=== PATIENT | female | born 1995 | race Caucasian/White ===

== ENCOUNTER 2019-04-21 14:00 | Emergency (ER) | payer MEDICAID ==
[~2019-04-21] VITALS: Ht 149.9 cm; Wt 59.1 kg
[~2019-04-21 14:00] MED LIST: BISA-155 PO
[2019-04-21 14:22] VITALS: BP 151/90
[2019-04-21] MEDS ORDERED: METH4TAB81 PO (15:15)
[2019-04-21] MEDS ORDERED: triamcinolone acetonide 40mg/ml inj IM ONE (15:15)
== END 2019-04-21 15:30 | disposition home or self-care (01) ==
LOC: ER 14:01
DX: L23.7 Allergic contact dermatitis due to plants, except food (principal); R06.02 Shortness of breath; J45.909 Unspecified asthma, uncomplicated; F17.200 Nicotine dependence, unspecified, uncomplicated; Z88.0 Allergy status to penicillin; Z88.8 Allergy status to other drugs, medicaments and biological substances; Z79.899 Other long term (current) drug therapy
CPT/HCPCS: 96372; 99283; J3301

== ENCOUNTER 2019-07-29 12:07 | Emergency (ER) | payer MEDICAID ==
[~2019-07-29] VITALS: Ht 149.9 cm; Wt 59.1 kg
[~2019-07-29 12:07] MED LIST changes: +METH4TAB81 PO
[2019-07-29 12:37] LABS: BASOPHILS % (AUTO) 0.3 % (0-1); EOSINOPHILS # (AUTO) 0.1 X10'3 (0-0.9); EOSINOPHILS % (AUTO) 1.2 % (0-6); HEMATOCRIT 40.4 % (35.0-45.0); HEMOGLOBIN 13.7 g/dl (12.0-16.0); LYMPHOCYTES # (AUTO) 1.9 X10'3 (1.1-4.8); LYMPHOCYTES % (AUTO) 20.4 % (21-51); MEAN CORPUSCULAR HEMOGLOBIN 28.9 PG (27.0-31.0); MEAN CORPUSCULAR HGB CONC 33.8 g/dL (33.0-36.5); MEAN CORPUSCULAR VOLUME 85.5 FL (78-98); MEAN PLATELET VOLUME 7.5 FL (7.4-10.4); MONOCYTES # (AUTO) 0.6 X10'3 (0-0.9); MONOCYTES % (AUTO) 6.8 % (2-12); NEUTROPHILS # (AUTO) 6.7 X10'3 (1.8-7.7); NEUTROPHILS % (AUTO) 71.3 % (42-75); PLATELET COUNT 286 X10'3 (140-440); RED BLOOD COUNT 4.73 X10'6 (4.20-5.60); RED CELL DISTRIBUTION WIDTH 14.9 % (11.5-14.5); WHITE BLOOD COUNT 9.4 X10'3 (4.5-11.0)
[2019-07-29 12:51] LABS: PARTIAL THROMBOPLASTIN TIME 28 SECONDS (22-32)
[2019-07-29 12:54] LABS: ALANINE AMINOTRANSFERASE 17 U/L (12-78); ALBUMIN 4.2 G/DL (3.4-5.0); ALBUMIN/GLOBULIN RATIO 1.3 (1.1-1.5); ALKALINE PHOSPHATASE 60 IU/L (46-116); ANION GAP 9 (8-16); ASPARTATE AMINO TRANSFERASE 21 U/L (10-37); BILIRUBIN,TOTAL 0.4 MG/DL (0.1-1.0); BLOOD UREA NITROGEN 10 MG/DL (7-18); BUN/CREATININE RATIO 12.8 (6.6-38.0); CALCIUM 8.6 MG/DL (8.5-10.1); CHLORIDE 107 MMOL/L (99-107); CREATININE 0.78 MG/DL (0.40-0.90); GLUCOSE 75 MG/DL (70-104); POTASSIUM 3.5 MMOL/L (3.5-5.1); SODIUM 142 MMOL/L (135-145); TOTAL CARBON DIOXIDE 25.9 MMOL/L (24-32); TOTAL PROTEIN 7.4 G/DL (6.4-8.2); eGFR > 90 ML/MIN
[2019-07-29] MEDS ORDERED: ibuprofen tablet 400 MG TABLET PO ONE (13:05)
[2019-07-29] MEDS ORDERED: IBUP-1984 PO (13:24)
[2019-07-29 13:32] VITALS: BP 136/76
== END 2019-07-29 13:33 | disposition home or self-care (01) ==
LOC: ER 12:07
DX: S13.8XXA Sprain of joints and ligaments of other parts of neck, initial encounter (principal); R07.89 Other chest pain; J45.909 Unspecified asthma, uncomplicated; F17.200 Nicotine dependence, unspecified, uncomplicated; F10.99 Alcohol use, unspecified with unspecified alcohol-induced disorder; Z98.890 Other specified postprocedural states; Z88.0 Allergy status to penicillin; Z88.8 Allergy status to other drugs, medicaments and biological substances; Z79.899 Other long term (current) drug therapy; Y08.89XA Assault by other specified means, initial encounter; Y93.89 Activity, other specified; Y92.89 Other specified places as the place of occurrence of the external cause; Y99.8 Other external cause status; Y90.9 Presence of alcohol in blood, level not specified
CPT/HCPCS: 36415; 71045; 80053; 84484; 85025; 85610; 85730; 93005; 99284

== ENCOUNTER 2019-09-02 11:35 | Emergency (ER) | payer MEDICAID ==
[~2019-09-02] VITALS: Ht 149.9 cm; Wt 60.0 kg
[2019-09-02 11:42] VITALS: BP 142/83
[2019-09-02] MEDS ORDERED: triamcinolone acetonide 40mg/ml inj IM ONE (12:45)
[2019-09-02] MEDS ORDERED: DIPH25CA83 PO (12:50)
== END 2019-09-02 13:06 | disposition home or self-care (01) ==
LOC: ER 11:36
DX: L50.8 Other urticaria (principal); J45.909 Unspecified asthma, uncomplicated; Z88.0 Allergy status to penicillin; Z79.899 Other long term (current) drug therapy
CPT/HCPCS: 96372; 99283; J3301

== ENCOUNTER 2021-02-03 16:06 | Emergency (ER) | payer MEDICAID ==
[~2021-02-03] VITALS: Ht 149.9 cm; Wt 62.5 kg
[~2021-02-03 16:06] MED LIST changes: +DIPH25CA83 PO
[2021-02-03] MEDS ORDERED: oxymetazoline 15 ML nasal spray NS ONE (16:40)
[2021-02-03 17:55] VITALS: BP 132/80
== END 2021-02-03 17:57 | disposition home or self-care (01) ==
LOC: ER 17:06
DX: R04.0 Epistaxis (principal); R05 Cough; J45.909 Unspecified asthma, uncomplicated; Z72.89 Other problems related to lifestyle; Z98.890 Other specified postprocedural states; Z88.0 Allergy status to penicillin; Z88.8 Allergy status to other drugs, medicaments and biological substances; Z79.899 Other long term (current) drug therapy
CPT/HCPCS: 99284